=== PATIENT | male | born 1930 | race Caucasian/White ===

== ENCOUNTER 2018-04-27 12:12 | Emergency (ER) | payer MEDICARE ==
[~2018-04-27] VITALS: Ht 177.8 cm; Wt 80.0 kg
[~2018-04-27 12:12] MED LIST: ASPIRIN81 MG PO; BACTRIM DS1 TAB OR; CYANOCOBALAM1000 MC1 IM; DEPO-MEDROL40 MG/ML IJ; FLEXERIL5 MG PO; LISINOPRIL10 MG PO; LORTAB 7.57.5 MG PO; LOTRISONE CREAM15 G1; MAXEPA1000 M1 PO; METOPROL TAR25 MG PO; MOTRIN400 MG/TAB PO; MULTI VITAMN PO; TIZANIDINE4 MG PO; VITAMIN C1000 MG PO; ZPAK PO
[2018-04-27 12:42] VITALS: BP 158/88
== END 2018-04-27 12:42 | disposition home or self-care (01) ==
LOC: ED 12:12
DX: T63.481A Toxic effect of venom of other arthropod, accidental (unintentional), initial encounter (principal); I10 Essential (primary) hypertension